=== PATIENT | female | born 1945 | race Caucasian/White ===

== ENCOUNTER → 2020-06-19 | Outpatient (CLI) | payer MEDICARE, BC, SELFPAY ==
[2020-06-19 16:12] LABS: Vitamin D,25 Hydroxy 44.7 ng/mL
[2020-06-19 16:17] LABS: Anion Gap 6 (5-15); BUN 18 mg/dL (7-18); Calcium,Total 9.1 mg/dL (8.5-10.1); Chloride 107 mmol/L (98-107); Creatinine, Serum 0.86 mg/dL (0.55-1.02); EST Glomerular Filtration Rate 69 mL/min (>60); Est Glom Filt Rate - Afr Amer 83 mL/min (>60); Glucose 77 mg/dL (74-106); Sodium Level 141 mmol/L (136-145)
== END | disposition home or self-care (01) ==
LOC: MTLAB 11:15
PROVIDERS: PCP Family Medicine; Referring Provider Family Medicine; Visit Provider Family Medicine
DX: Z00.00 Encounter for general adult medical examination without abnormal findings (principal); E55.9 Vitamin D deficiency, unspecified
CPT/HCPCS: 36415; 80048; 82306

== ENCOUNTER → 2021-07-02 14:30 | Outpatient (CLI) | payer MEDICARE, BC, SELFPAY ==
--- NOTE | 2021-07-02 14:34 | RAD_ITS ---
STUDY: X-RAY - PELVIS AND BILATERAL HIPS REASON FOR EXAM: Female, 76 years old. LEG PAIN TECHNIQUE: AP view of the pelvis.? 2 views of the right hip, and 2 views of the left hip were obtained. COMPARISON: None. FINDINGS: There is a non-specific bowel gas pattern. Normal visualized soft tissue structures. The visualized levoscoliosis multilevel degenerative change in the lumbar spine. Normal bilateral iliac wings, sacroiliac joints and visualized sacrum. Normal bilateral superior and inferior pubic rami. Normal pubic symphysis. Normal bilateral ischial tuberosities. Normal visualized right femoral head. There is osteoarthritic spur formation of the right acetabular rim. There is mild articular joint space narrowing of the right hip. There are osteoarthritic changes of the left femoral head with marginal osteophyte formation. There is cortical sclerosis with sub-cortical cyst formation of the left acetabulum. There is severe articular joint space narrowing of the left hip. RAD/Hips B/L min 2 views w/ Pelvis IMPRESSION: Advanced degenerative change of the left hip joint. Mild degenerative change right hip joint. No visualized acute fracture. Electronically Signed: Alysa Cho MD at 6:56 EDT Tel , Service support ,
== END ==
PROVIDERS: PCP Family Medicine; Referring Provider Family Medicine; Visit Provider Family Medicine
DX: M79.606 Pain in leg, unspecified (principal)
CPT/HCPCS: 73521

== ENCOUNTER → 2022-01-05 | Outpatient (CLI) | payer MEDICARE, BC, SELFPAY ==
--- NOTE | 2022-01-05 14:06 | EKG12_ITS ---
Test Reason : PREOP Blood Pressure : / mmHG Vent. Rate : 064 BPM Atrial Rate : 064 BPM P-R Int : 164 ms QRS Dur : 068 ms QT Int : 408 ms P-R-T Axes : 027 -22 -08 degrees QTc Int : 420 ms Normal sinus rhythm Normal ECG Confirmed by SANJUANITA FLORES, LINDA ([id number]), editorial specialist BECK ANTHONY ([id number]) on 01/06/2022 8:16:34 AM Referred By: Antonio Madsen Confirmed By:LINDA GANN MD
[2022-01-05 14:55] LABS: Hematocrit 39.8 % (37-47); Mean Corp Hgb Conc 32.7 g/dL (32-36); Mean Corpuscular Hgb 30.8 pg (27.0-32.0); Mean Corpuscular Volume 94.3 fL (81-99); Mean Platelet Vol. 9.9 fl (6.2-12.0); Platelet Count 265 K/mm3 (150-450); RBC Distribution Width SD 44.8 fl (35.1-43.9); Red Blood Count 4.22 M/mm3 (4.2-5.4); White Blood Count 6.1 K/mm3 (4.4-11.0)
[2022-01-05 15:16] LABS: Hemoglobin A1c 5.2 % (3.8-5.6)
[2022-01-05 15:21] LABS: Anion Gap 4 (5-15); BUN 17 mg/dL (7-18); BUN/Creat Ratio 19.4 RATIO (10-20); Calcium,Total 9.4 mg/dL (8.5-10.1); Chloride 107 mmol/L (98-107); Creatinine, Serum 0.88 mg/dL (0.55-1.02); EST Glomerular Filtration Rate 67 mL/min (>60); Est Glom Filt Rate - Afr Amer 81 mL/min (>60); Glucose 84 mg/dL (74-106); Potassium 4.2 mmol/L (3.5-5.1); Sodium Level 139 mmol/L (136-145)
== END | disposition home or self-care (01) ==
LOC: PSN 13:59
PROVIDERS: PCP Family Medicine; Referring Provider Physician Assistant; Visit Provider Physician Assistant
DX: Z01.810 Encounter for preprocedural cardiovascular examination (principal); Z01.818 Encounter for other preprocedural examination
CPT/HCPCS: 36415; 80048; 83036; 85027; 93005

== ENCOUNTER → 2022-01-14 | Outpatient (CLI) | payer MEDICARE, BC, SELFPAY ==
--- NOTE | 2022-01-14 08:30 | HIP_PTH ---
PATIENT: NABIL LEIJA LOC: [facility] U#:[id number] AGE/SX: 76/F ROOM: RE01/14/[address]: Dr. Holland Bullock DO : 1945 BED: DIS: 01/14/2022 SPEC #: [id number] RECD: 01/14/22 14:57 STATUS: ALLIE REStarr #: [id number] EVER: 01/14/22 08:[address]: Holland Bullock DEPT: SURGICAL PATHOLOGY RECD BY: Anahi Willis ENTERED: 01/15/22 07:41 SP TYPE: TOTAL HIP OTHR DR: Dr. Duglas Gutierrez MD [facility] Tissues: Hip, NOS Procedures: Decalcification bone/plaque Surgery Specimen Level IV HEADER OPERATION: Left total hip arthroplasty PRE-OP DIAGNOSIS: Primary osteoarthritis left hip TISSUE SUBMITTED: Left hip bone and soft tissue MICROSCOPIC DIAGNOSIS Left hip bone and soft tissue, total hip replacement/resection: Femoral head with degenerative osteoarthritic changes. Fragments of fibroadipose tissue and fibroconnective tissue. SJ:jacey 01/19/2022 MICROSCOPIC DESCRIPTION Slides are reviewed. GROSS DESCRIPTION Received is one container labeled with the patient's name and designated bone and soft tissue hip, left. The specimen consists of a tolbert femoral head measuring 6.5 x 5 x 5 cm. The articular surface of the femoral head displays prominent osteophyte formation, eburnation and bone erosion. Also present in the specimen container are multiple irregular fragments of bone reamings and pink-yellow soft tissue measuring in aggregate 8 x 7 x 1 cm. Welfare [employer] Manager sections are submitted in two cassettes as follows: 1 - soft tissue, 2 - bone after decalcification. / AM:jacey 01/15/2022 TC:5 [facility]: [id number], [id number]
== END | disposition home or self-care (01) ==
PROVIDERS: PCP Family Medicine; Visit Provider Orthopaedic Surgery
DX: M16.12 Unilateral primary osteoarthritis, left hip (principal)
CPT/HCPCS: 88305; 88311

== ENCOUNTER → 2022-09-08 | Outpatient (CLI) | payer MEDICARE, BC, SELFPAY ==
[2022-09-08 13:19] LABS: Anion Gap 5 (5-15); BUN 15 mg/dL (7-18); BUN/Creat Ratio 18.2 RATIO (10-20); Calcium,Total 9.3 mg/dL (8.5-10.1); Chloride 108 mmol/L (98-107); Cholesterol 225 mg/dL (200); Creatinine, Serum 0.82 mg/dL (0.55-1.02); EST Glomerular Filtration Rate 72 mL/min (>60); Est Glom Filt Rate - Afr Amer 87 mL/min (>60); Glucose 85 mg/dL (74-106); High Density Lipoprotein 68 mg/dL; Potassium 4.7 mmol/L (3.5-5.1); Sodium Level 140 mmol/L (136-145); Triglycerides 100 mg/dL; Very Low Density Lipoprotein 20 mg/dL (5-40)
== END | disposition home or self-care (01) ==
LOC: MFPLAB 09:46
PROVIDERS: PCP Family Medicine; Visit Provider Family Medicine
DX: Z00.00 Encounter for general adult medical examination without abnormal findings (principal)
CPT/HCPCS: 36415; 80048; 80061

== ENCOUNTER → 2022-09-17 | Outpatient (CLI) | payer MEDICARE, BC, SELFPAY ==
--- NOTE | 2022-09-17 14:27 | BI_ITS ---
MAMMOGRAPHY - BILATERAL SCREENING REASON FOR EXAM: Female, 77 years old. Routine annual screening examination. PERTINENT HISTORY: Non-contributory. TECHNIQUE: Digital bilateral breast onel (3D mammographic acquisition) in the CC and MLO projections. 2-D mediolateral oblique (MLO) and craniocaudad (CC) views of both breasts were obtained. CAD: Full Field Digital Mammography with Computer Added Detection was performed. COMPARISON: Comparison is made with prior outside examination dated 10/09/2019. FINDINGS: Breast Composition: There are scattered areas of fibroglandular density. There are no dominant masses or suspicious calcifications. Stable small benign-appearing bilateral axillary lymph nodes. No other significant abnormalities are identified. There has been no significant change since the prior study. BI/SCRN MAMM (CAD)W/ONEL BILAT IMPRESSION: Stable bilateral screening mammogram. Yearly follow-up mammogram recommended. (A) ASSESSMENT CATEGORY: BIRADS Category 2: Benign. A letter regarding these results will be sent to the patient by the facility within 30 days. Approximately 10% of breast cancers are not detected by mammography. A normal mammogram should not delay biopsy of a clinically suspicious abnormality. [id number] Electronically Signed: Harvinder Parra MD at 8:29 EST ,
--- NOTE | 2022-09-17 14:28 | BD_ITS ---
STUDY: DUAL ENERGY X-RAY ABSORPTIOMETRY / DXA REASON FOR EXAM: Female, 77 years old. M810 TECHNIQUE: Bone Mineral Density (BMD) measurements of lumbar spine and bilateral hips were obtained. COMPARISON: None. FINDINGS: Lumbar Spine (L1-L4): g/cm2 (1.005) / T-score (-0.4) / Z-score (2.1) Findings are suggestive of normal bone mineral density with a not increased fracture risk. Right Femur Total: g/cm2 (0.64) / T-score -2.4/ Z-score (-0.5) Right Femoral Neck: g/cm2 (0.52) / T-score (-3) / Z-score (-0.8) Left hip not studied due to prosthesis placement No prior study available for comparison BD/Dexa Bone Density Study IMPRESSION: The patient is considered osteoporotic based on the right hip bone mineral density as outlined below according to World Felix Organization (WHO) criteria with a increased fracture risk. Reference Information: The T-score is the number of standard deviations above or below the standard which is normal for young adults at their peak bone mineral density. The World Health Organization (WHO) interprets the T-scores as follows: Above -1 Normal bone density Between -1 and -2.5 Osteopenia Equal to / or below -2.5 Osteoporosis As a practical clinical guideline, osteopenia may be graded as follows: Mild -1 through -1.5 Moderate -1.6 through -2.0 Severe -2.1 through -2.4 The Z-score is the number of standard deviations above or below age-matched controls. A Z-score of less than -1.5 would be considered abnormal. References: 1. NIH Osteoporosis and Related Bone Diseases www osteo.org 2. International Society for Clinical Densitometry www iscd.org 3. National Osteoporosis Foundation www nof.org Electronically Signed: Brad Piedra MD at 23:00 EST ,
== END | disposition home or self-care (01) ==
LOC: OPBD 14:24
PROVIDERS: PCP Family Medicine; Visit Provider Family Medicine
DX: Z00.00 Encounter for general adult medical examination without abnormal findings (principal); Z12.31 Encounter for screening mammogram for malignant neoplasm of breast; M81.0 Age-related osteoporosis without current pathological fracture
CPT/HCPCS: 77063; 77067; 77080

== ENCOUNTER → 2023-03-19 | Outpatient (CLI) | payer MEDICARE, BC, SELFPAY ==
--- NOTE | 2023-03-19 12:48 | RAD_ITS ---
INDICATION: ROUTINE EXAM EXAMINATION/TECHNIQUE: X-RAY - XR Chest 2 Views COMPARISON: FINDINGS: LINES/DEVICES: None. LUNGS: No consolidation, edema or effusion. No pneumothorax. MEDIASTINUM AND CARDIOVASCULAR STRUCTURES: Cardiac silhouette not enlarged. Central airways and mediastinal contour are unremarkable. BONES AND SOFT TISSUES: Unremarkable. RAD/Chest PA and Lateral IMPRESSION: No radiographic evidence of acute cardiopulmonary disease. Electronically Signed: Ezra Liz, at 15:46 EDT ,
[2023-03-19 15:12] LABS: Absolute Lymphocyte Count 1.54 X10^3/uL (0.83-4.51); Absolute Neutrophil Count 2.4 X10^3/uL (2.0-7.7); Basophil# 0.04 X10^3/uL; Basophil% 0.9 % (0-1); Eosinophils% 2.2 % (0-5); Hematocrit 40.6 % (37-47); Hemoglobin 13.2 g/dL (12.0-15.0); Lymphocyte # 1.54 X10^3/ul (0.83-4.51); Lymphocyte % 33.4 % (19-41); Mean Corp Hgb Conc 32.5 g/dL (32-36); Mean Corpuscular Hgb 30.3 pg (27.0-32.0); Mean Corpuscular Volume 93.3 fL (81-99); Mean Platelet Vol. 10.7 fl (6.2-12.0); Monocyte# 0.57 X10^3/uL; Monocyte% 12.4 % (0-10); NRBC Flagged by Analyzer 0 % (0-5); Neutrophil # 2.35 X10^3/uL (2.7-7.7); Neutrophil % 50.9 % (47-70); Platelet Count 250 K/mm3 (150-450); RBC Distribution Width CV 13.2 % (11.6-14.6); RBC Distribution Width SD 45.1 fl (35.1-43.9); Red Blood Count 4.35 M/mm3 (4.2-5.4); White Blood Count 4.6 K/mm3 (4.4-11.0)
[2023-03-19 15:45] LABS: ALB/GLOB Ratio 1.1 RATIO (0.9-2.4); AST(SGOT) 13 U/L (15-37); Alanine Aminotransfer ALT/SGPT 17 U/L (13-56); Albumin, Serum 3.8 g/dL (3.2-5.0); Alkaline Phosphatase 89 U/L (45-117); Anion Gap 5 (5-15); BUN 24 mg/dL (7-18); BUN/Creat Ratio 24.2 RATIO (10-20); Calcium,Total 9.4 mg/dL (8.5-10.1); Chloride 107 mmol/L (98-107); Creatinine, Serum 0.99 mg/dL (0.55-1.02); EST Glomerular Filtration Rate 58 mL/min (>60); Est Glom Filt Rate - Afr Amer 70 mL/min (>60); Globulin 3.4 g/dL (2.2-4.2); Glucose 66 mg/dL (74-106); Potassium 4.1 mmol/L (3.5-5.1); Protein, Total 7.2 g/dL (6.4-8.2); Sodium Level 139 mmol/L (136-145)
== END | disposition home or self-care (01) ==
PROVIDERS: PCP Family Medicine; Referring Provider Family Medicine; Visit Provider Family Medicine
DX: Z00.00 Encounter for general adult medical examination without abnormal findings (principal)
CPT/HCPCS: 36415; 71046; 80053; 85025

== ENCOUNTER 2023-04-16 11:26 | Day surgery (SDC) | payer MEDICARE, BC, SELFPAY ==
[2023-04-16] VITALS (9 sets, daily range): BP systolic 98–123; BP diastolic 72–75; PULSE 50–73; RESP 16; TEMP 36.6–37.1; O2SAT 98–100; BMI 23.6
--- NOTE | 2023-04-16 | BON_PTH ---
PATIENT: NABIL LEIJA LOC: [facility] [place] U#:[id number] AGE/SX: 77/F ROOM: RE04/16/[address]: Dr. Holland Ventura DPM : 1945 BED: DIS: 04/16/2023 SPEC #: [id number] RECD: 04/19/23 10:31 STATUS: ALLIE REStarr #: [id number] EVER: 04/16/23 00:[address]: Holland Ventura DEPT: SURGICAL PATHOLOGY RECD BY: Walt Hale ENTERED: 04/19/23 10:32 SP TYPE: Bone OTHR DR: Dr. Duglas Gutierrez MD Tissues: A - Bone of foot, NOS B - Bone of foot, NOS Procedures: Decalcification bone/plaque Surgery Specimen Level III HEADER OPERATION: Derotational arthroplasty of fifth digit PRE-OP DIAGNOSIS: Christiano Aponte's bunion TISSUE SUBMITTED: A - Fifth digit, B - Fifth metatarsal MICROSCOPIC DIAGNOSIS A. Fifth digit bone, excision: Osseocartilaginous tissue consistent with hammertoe deformity. B. Fifth metatarsal bone, excision: Osseocartilaginous tissue consistent with hammertoe deformity. AM/am 04/21/23 MICROSCOPIC DESCRIPTION Slides are reviewed. GROSS DESCRIPTION A - Received in fixative is one container labeled with the patient's name and designated fifth digit. The specimen consists of three irregular fragments of tolbert-white bone that in aggregate measure 2.0 x 1.2 x 0.2 cm. The specimen is totally submitted in one cassette after decalcification. B - Received in fixative is one container labeled with the patient's name and designated fifth metatarsal. The specimen consists of a discoid fragment of tolbert-white bone measuring 1.2 x 1.0 x 0.2 cm. The specimen is totally submitted in one cassette after decalcification. / AM:jacey 04/19/2023 TC:5 CPT:66815o7, 57633x8
[2023-04-16] MEDS: Lactated Ringers 1,000 ML 15 ML IV (11:57)
--- NOTE | 2023-04-16 12:00 | RAD_ITS ---
EXAM: XR RIGHT FOOT COMPLETE, 3 OR MORE VIEWS CLINICAL INDICATION: PAIN -- DEROTATIONAL ARTHROPLASTY OF 5TH DIGIT -- 20 SEC FLUORO, 0.1128 MGY, 6 IMAGES TECHNIQUE: Frontal, lateral and oblique views of the right foot. COMPARISON: No relevant prior studies available. FINDINGS: BONES/JOINTS: Intraoperative images were obtained. These show surgical resection of the distal aspect of the proximal fifth phalanx. No acute fracture. No subluxation. Normal alignment. Preservation of the joint space. No sclerotic or destructive changes observed. SOFT TISSUES: Unremarkable. No soft tissue swelling or gas. No radiopaque foreign body. RAD/Foot min 3 Views IMPRESSION: Postsurgical changes in the distal aspect of the proximal fifth phalanx. Electronically Signed: Kentrell Ocampo MD at 0:04 EDT ,
[2023-04-16] MEDS: Clindamycin 900 MG/50 ML BAG 75 MG IV (13:29)
[2023-04-16] MEDS: Bupivacaine Mpf 0.5% 30 ML VIAL (14:26)
--- NOTE | 2023-04-16 14:52 | DCINST_ITS ---
Discharge Instructions Diet Discharge Diet: No restrictions Activity Discharge Activity: May Not Drive and May Shower (Please utilize cast bag covering to keep dressings clean, dry, and intact to the right foot) Weight Bearing Status: Partial weight bearing (Protected weightbearing in surgical shoe to right foot. May ambulate as necessary) Keep extremity elevated above heart level: Right Leg (Please elevate right lower extremity at all times rest for postoperative edema control) Dressing / Incision Call your doctor if you observe: Fever of 101 or Higher, Shortness of breath, Chest pain, Calf discomfort and Uncontrolled pain Change Dressing in: do not change dressing Remove Dressing in: leave in place till F/U (Physician will change dressings at first postoperative appointment) Cleanse incision/area with: Do not get Incision Wet (Do not get incision site wet.) and Keep Dressing Clean & Dry (Keep all dressings clean, dry, and intact to the right foot) Follow Up Care Please Follow Up With: Holland Ventura DPM When: Patient has first postoperative appointment in office next week. Test Results: Test results from this visit will be discussed in further detail at your follow- up appointment, if applicable. Discharge Plan Admission Attending Provider: Holland Ventura Primary Care Provider: Duglas Gutierrez Discharge Orders/Prescriptions Prescriptions: New oxycodone-acetaminophen 5-325 mg tablet 1 tab PO Q8H PRN (Reason: pain) 7 Days Qty: 28 0RF doxycycline hyclate 100 mg capsule 100 mg PO DAILY Qty: 10 0RF No Action cholecalciferol (vitamin D3) [Vitamin D3] 50 mcg (2,000 unit) capsule 2,000 unit PO DAILY calcium citrate 250 mg calcium tablet 250 mg PO DAILY Referrals / Follow Up: Duglas Gutierrez MD [Primary Care Provider] - Disposition Disposition (needs filled in before D/C Order can be placed): Home, Self Care
--- NOTE | 2023-04-16 14:59 | OP.PCM_ITS ---
Problems Associated Problem List Diagnoses (1) Tailor's bunion of right foot: (2) Hammer toe of right foot: (3) Pain in right foot: Report of Operation Date of Procedure: 04/16/23 Pre-Operative Diagnosis: 1. Adductovarus rotation fifth digit right foot 2. Tailor's bunion right foot 3. Pain right foot Post-Operative Diagnosis: 1. Adductovarus rotation fifth digit right foot 2. Tailor's bunion right foot 3. Pain right foot Surgery/Procedure Performed:: 1. Derotational arthroplasty of the fifth digit right foot 2. Tailor's bunionectomy/reverse silver procedure right foot Description of Surgical Findings:: See operative note for findings Surgeon: Holland Ventura test engine evaluator: Jo-Ann Castillo DPM PGY-2 Type of Anesthesia: Local (10 cc one-to-one mixture 1% lidocaine plain and 0.5% Marcaine plain; 10 cc 0.5% Marcaine plain) and MAC Specimen's removed: Bone fifth metatarsal right foot Bone fifth digit right foot Drains: None Estimated Blood Loss (mL): < 3mL Description of Procedure: HPI/indication: Patient is a 77-year-old female who presents to the office September 02, 2022 with complaint of pain in the fifth digit and right foot. Patient stated her pain is primarily from hammertoe deformity with callus buildup to the plantar lateral fifth digit and from bump on the side of the foot that rubs in shoe gear. Radiographs were taken and discussed with her. Patient did exhibit adductovarus rotation of the fifth digit with painful plantar callus at the distal lateral aspect in addition to painful tailor's bunion deformity of the right foot. At that time patient elected for routine debridement of the callus and change of shoe gear however over the next few months she stated that she was still having pain and was ready to discuss surgical intervention. I discussed with her in March surgical intervention for correction of the adductovarus deformity of the fifth digit in addition to tailor's bunion deformity. I reviewed the condition and treatment options in detail. Patient continues to have limiting pain and significant symptoms despite nonsurgical care and thus would like to proceed with surgical intervention. We discussed the procedure in great detail. Reviewed the rationale with the procedure with this patient in great detail. We discussed all possible benefits versus risks and potential complications in detail. Advised patient of the risks include but are not limited to the following: Pain, continued pain, complex regional pain syndrome, deformity, continue deformity, recurrence, overcorrection, under correction, numbness/neuritis, swelling, scarring, poor cosmetic result, bleeding, need for further surgical surgery/procedures, fracture, nonunion, delayed union, nonhealing/delayed healing, dehiscence, infection, blood clots, allergic reaction, transfer lesions, postoperative arthritis, weakness, shoe gear problems, inability to walk, inability to wear shoes, floating toe, contracted toe, deviated toe, stroke, heart attack, addiction to pain medication, loss of function, loss of limb, loss of life. Patient expressed understanding and agreement and was able to repeat these back. The alternative options were discussed and reviewed with the patient in great detail, reviewed all risks and possible benefits of all options. Typical postoperative course was reviewed. Patient expressed understanding and agreement. The consent forms were reviewed and she signed them freely. No promises were made. No guarantees were given. She underwent medical clearance by her PCP and H&P and all diagnostic data were reviewed prior to surgical intervention. Operative limb was signed prior to entering the OR. She was scheduled to undergo derotational arthroplasty of the fifth digit and tailor's bunionectomy of the right foot at [facility] on 04/16/2023. Procedure: Under mild sedation patient was brought to the operating placed on the table in supine position. Following IV sedation pneumatic ankle tourniquet was placed around the patient's right ankle. A local anesthetic block was then performed about the proximal fifth ray of the right foot consisting of 10 cc of a one-to-one mixture of 1% lidocaine plain and 0.5% Marcaine plain. The foot was then scrubbed, prepped, and draped in the usual aseptic manner. An Esmarch bandage was utilized to exsanguinate the right foot and the right foot was elevated and the pneumatic ankle tourniquet was inflated to 250 mmHg. Fluoroscopy was utilized prior to incision to demonstrate hammertoe deformity of the fifth digit and tailor's bunion deformity of the right foot. At this time attention was directed to the right foot fifth digit where an elliptical incision was performed overlying the fifth proximal interphalangeal joint dorsal proximal lateral and extended dorsal distal medial utilizing a #15 blade. The skin wedge was then removed utilizing sharp dissection with #15 blade. Incision was deepened utilizing sharp and blunt dissection, care was taken to identify and retract all vital neurovascular structures. Extensor tendon to the fifth digit was identified and transected at the proximal interphalangeal joint utilizing #15 blade. At this time visualization of the proximal interphalangeal joint was obtained and the head of the proximal phalanx was resected utilizing a sagittal saw. Base of the middle phalanx was also resected utilizing sagittal saw. Site was then irrigated with copious amounts normal sterile saline. Next attention was directed to the fifth metatarsal where a separate linear incision was made overlying the lateral aspect of the fifth metatarsal head. Incision was deepened utilizing sharp and blunt dissection. Care was taken to identify and retract all vital neurovascular structures. The joint capsule of the fifth metatarsal was identified and incised via a linear incision to give access to the tailor's bunion deformity. A sagittal saw was then utilized to resect the lateral aspect of the fifth metatarsal head/lateral eminence. Fluoroscopy was then utilized to confirm resection and correction of the hammertoe deformity. Site was then flushed with copious amounts of normal sterile saline. Capsular tissue and deep structures about the fifth metatarsal head were closed utilizing 4-0 Vicryl. Subcutaneous tissue closed utilizing 4-0 Monocryl. And skin reapproximated utilizing 3-0 Prolene. Attention was then directed to the fifth digit of the right foot where capsular tissue was closed utilizing 4-0 Vicryl. The extensor tendon of the fifth digit was repaired utilizing 4-0 Vicryl. Subcutaneous tissue was then closed utilizing 4-0 Monocryl. The skin was then reapproximated utilizing 3-0 Prolene. Upon loading of the foot correction was noted of the tailor's bunion deformity and fifth digit of the right foot. A postoperative anesthetic block was then performed about the proximal fifth ray consisting of 10 cc 0.5% Marcaine plain. At this time the pneumatic ankle tourniquet was deflated and a prompt hyperemic response was noted to the digits of the right foot. Incision sites were then dressed utilizing Betadine soaked Adaptic, 4 x 4 gauze, Kerlix, and 4 inch Shay wrap rolled onto the right foot. Patient tolerated the procedure and anesthesia well was transported to PACU vital signs stable vascular status intact to the right foot. Postoperative radiographs were obtained of the right foot in PACU and reviewed prior to leaving. Patient is to elevate right foot at all times of rest for postoperative edema control. She is to keep dressings clean, dry, and intact to the right foot. She may ambulate in protective weightbearing fashion with surgical shoe to the right foot only. These were outlined in addition to other postoperative instructions in her discharge summary. Patient has first postoperative appointment with me in office next week for continued postoperative care. Grafts/Implants Used: None Complications None Admit VTE Documentation VTE Present on Admission: No VTE Mechan Device Prophylaxis: SCD's VTE Pharm Prophylaxis ordered?: No Reason prophylaxis not ordered:: Procedure Not Indicated
--- NOTE | 2023-04-16 15:05 | RAD_ITS ---
EXAM: XR RIGHT FOOT COMPLETE, 3 OR MORE VIEWS CLINICAL INDICATION: Postoperative tailor''s bunion and fifth digit jared TECHNIQUE: Frontal, lateral and oblique views of the right foot. COMPARISON: No relevant prior studies available. FINDINGS: BONES/JOINTS: There are postsurgical changes of the distal aspect of the proximal fifth phalanx. No acute fracture. No subluxation. Normal alignment. Preservation of the joint space. No sclerotic or destructive changes observed. SOFT TISSUES: Unremarkable. No soft tissue swelling or gas. No radiopaque foreign body. RAD/Foot min 3 Views IMPRESSION: Postsurgical changes of the distal aspect of the proximal fifth phalanx. Electronically Signed: Kentrell Ocampo MD at 19:39 EDT ,
== END 2023-04-16 16:26 | disposition home or self-care (01) ==
LOC: SDC 11:29 → AC 11:31
PROVIDERS: PCP Family Medicine; Referring Provider Student in an Organized Health Care Education/Training Program; Visit Provider Student in an Organized Health Care Education/Training Program
PROC: (CPT 28285; principal; 2023-04-16 12:45)
DX: M20.41 Other hammer toe(s) (acquired), right foot (principal); M21.611 Bunion of right foot
CPT/HCPCS: 28285; 28110; 01480; 73630; 76000; 88304; 88311; J7120; J2405

== ENCOUNTER 2023-12-15 13:00 | Outpatient (RCR) | payer MEDICARE, BC, SELFPAY ==
--- NOTE | 2023-12-02 07:38 | HP.OTEVAL_ITS ---
Patient's Visit Information Visit Information Visit Information: NABIL LEIJA is a 78 year old F, referred to Occupational Therapy by Dr. Alyx Agudelo MD, with a diagnosis of Dupuytren's disease of palm of right hand. Date of Evaluation: 12/01/23 Occupational Therapist: Karoline Gaspar, DIONICIO/Kristina, CHT Subjective Subjective: This 78 year old female was seen for OT eval with dx of right Dupuytren's disease of palm of right hand- pt states she has issues for over three years- pt states she has had manipulation and the contracture continued to return- pt states she had left hand open release done and so she decided to go ahead with her right. pt had open release November 09, 2023 pt states she did get stitches out 10 days after and had her night orthosis damian. pt states paddle orthosis is fitting well and lets her sleep- pt states she can feel her hand pulling closed during the day so she will put her orthosis on about 2x a day to allow it to rest/stretch. pt states she has returned to using her hand but incision is still sore. pt is right handed. Pain right hand: Current Pain Intensity: 1 Pain Intensity Range: 1 and 2 ROM Forearm: right/left WNL Wrist: right/left WNL MP: right MF -20/80 RF-25/85 LF -5/85 PIP: right LF -35/95 ROM Comments: pt demo with continued slight MCP flex LF PIP limited with ex but moving all digits into flexion to form composite fist without difficulty. 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 (pt denies concerns) PROM of right LF PIP extension does feel tight ( will adj orthosis as pt tolerates ) Sensation Sensation Comments: denies Quick DASH-Disab of Arm,Shoulder& Hand Quick DASH Score: 31.8175 Goals Goal:100% adherence to protocol: Yes Comment: Dupuytren's release Guidlelines Goal:Daily scar massage when approriate: Yes Comment: right palm scar Goal:ROM equal to unaffected hand: Yes Goal:No pain with affected hand use: Yes Goal:Full use of affected hand in daily activities including work: Yes Goal:Decrease scar hypersensitivity: Yes Rehabilitation General Assessment: Pt s/p 3 weeks and 1 days s/p from a right SF and Palm, Dupuytren's excision. Pt demo with healed incision with noted hyper trophic and keloid scar- and limited PIP extension of right LF PIPJ. Pt demo need for skilled OT services 1x week for 3-4 weeks to ensure gains of ROM, scar mtg, along with return to use of right hand with ADLs and IADS. Today therapist did ed. pt in use of elastomer for night with paddle orthosis to provide scar support, ed. pt on light scar massage, review of her tendon glides added reverse blocking for PIP extension therapist also review orthosis use with strap placements- pt demo understanding and agree to POC. Rehabilitation Potential: Excellent Anticipated Interventions Anticipated Interventions: A/AAROM/PROM, Scar Care, Triggerpoint Release, Desensitization, Modalities, Orthoses, Joint Protection/Energy Conservation, Ergonomic Education, Education re Diagnosis and Home Program Visit Plan Frequency: 1-2x /Week Duration: 2-4 Weeks TEXT: Thank you for the opportunity to evaluate your patient. For Medicare and Medicare HMO plans, please review the plan of care and approve it. It will need to be FAXED BACK to us at [phone] for Medicare purposes. Please let me know if there are questions or concerns regarding this plan of care. Physician Signature: Dat e:
--- NOTE | 2024-03-24 09:06 | HP.OT.NRP ---
Patient Information Patient Information: NABIL LEIJA was seen in my office for initial evaluation on 12/01/23. The following Plan of Care was established for this patient: POC Established Initial Frequency: 1-2x /Week Initial Duration: 2-4 Weeks Anticipated Interventions Anticipated Interventions: A/AAROM/PROM, Scar Care, Triggerpoint Release, Desensitization, Modalities, Orthoses, Joint Protection/Energy Conservation, Ergonomic Education, Education re Diagnosis and Home Program Last Seen Last Seen: This patient was last seen in our office 12/15/23. Pertinent comments regarding their Occupational therapy will appear below: pt was seen for 3 OT sessions. pt doing well- Pt has not scheduled further apts and due to time lapse in services pt is d/c at this time. At this point I will be discontinuing this patient from occupational therapy. I would be happy to see this patient again in the future if found appropriate by the physician. Thank you! Karoline Gaspar, OTR/L, CHT
== END 2023-12-15 19:00 | disposition home or self-care (01) ==
LOC: OT 13:00
PROVIDERS: PCP Family Medicine; Referring Provider Orthopaedic Surgery Hand Surgery; Visit Provider Orthopaedic Surgery Hand Surgery
DX: M72.0 Palmar fascial fibromatosis [Dupuytren] (principal)
CPT/HCPCS: 97035; 97110; 97140; 97166; 97530

== ENCOUNTER → 2024-06-20 | Outpatient (CLI) | payer MEDICARE, BC, SELFPAY ==
[2024-06-20 12:32] LABS: Vitamin D,25 Hydroxy 55.1 ng/mL
[2024-06-20 12:40] LABS: Anion Gap 4 (5-15); BUN 20 mg/dL (7-18); Calcium,Total 9.4 mg/dL (8.5-10.1); Chloride 110 mmol/L (98-107); Creatinine, Serum 0.95 mg/dL (0.55-1.02); EST Glomerular Filtration Rate 60 mL/min (>60); Est Glom Filt Rate - Afr Amer 73 mL/min (>60); Glucose 87 mg/dL (74-106); Potassium 4.1 mmol/L (3.5-5.1); Sodium Level 141 mmol/L (136-145)
== END | disposition home or self-care (01) ==
LOC: MTLAB 09:40
PROVIDERS: PCP Family Medicine; Referring Provider Family Medicine; Visit Provider Family Medicine
DX: Z00.00 Encounter for general adult medical examination without abnormal findings (principal); E55.9 Vitamin D deficiency, unspecified
CPT/HCPCS: 36415; 80048; 82306

== ENCOUNTER → 2025-06-21 | Outpatient (CLI) | payer MEDICARE, BC, SELFPAY ==
--- OUTSIDE RECORDS SUMMARY | 2025-06-21 10:35 | XMS RPT_ITS | CCD ---
Author Organization [facility] Inform ion Partnership [facility] Care Team Providers Care Security Associate Name Role Phone Alyx Agudelo MD Unavailable [phone] Duglas Gutierrez Primary Care Unavailable Alyx Agudelo Attending Unavailable Alyx Agudelo Referring Unavailable Duglas Gutierrez Attending Unavailable Duglas Gutierrez Referring Unavailable Duglas Gutierrez Primary Care Unavailable Allergies Allergy Classification Reported Allergen(s) Allergy Type Date of Onset Reaction(s) Facility (1 source) Alendronate Drug Allergy 9 "pain in legs" [facility] Work Phone: (1 source) Amoxicillin Drug Allergy 9 "hives" 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, [address] CA,Total 9.4 mg/dL Normal 8.5-10.1 [facility] Comment on above: Performed By: #### L 506.1000, L500.2500 #### [facility] [address] [place], [address] Chloride [Moles/Vol] 110 mmol/L High 98-107 [facility] Comment on above: Performed By: #### L 506.1000, L500.2500 #### [facility] [address] [place], [address] CO2 [Moles/Vol] 28.0 mmol/L Normal 21.0-32.0 [facility] Comment on above: Performed By: #### L 506.1000, L500.2500 #### [facility] [address] [place], [address] Creatinine [Mass/Vol] 0.95 mg/dL Normal 0.55-1.02 [facility] Comment on above: Result Comment: The validity of the calculated GFR GFRAA in patients over 70 years has not been determined. Clinical correlation is essential. Performed By: #### L 506.1000, L500.2500 #### [facility] [address] [place], [address] EST GFR - AA 73 mL/min Normal >60 [facility] Comment on above: Result Comment: Afri can Brazilian GFR Calc Performed By: #### L 506.1000, L500.2500 #### [facility] [address] [place], [address] GAP 4 Low 5-15 [facility] Comment on above: Performed By: #### L 506.1000, L500.2500 #### [facility] [address] [place], [address] GFR/1.73 sq M.predicted among non-blacks MDRD (S/P/Bld) [Vol rate/Area] 60 mL/min/{1.73_m2} Normal >60 [facility] Comment on above: Result Comment: Non- GFR Calc Performed By: #### L 506.1000, L500.2500 #### [facility] [address] [place], [address] Glucose [Mass/Vol] 87 mg/dL Normal 74-106 [facility] Comment on above: Performed By: #### L 506.1000, L500.2500 #### [facility] [address] [place], [address] Potassium [Moles/Vol] 4.1 mmol/L Normal 3.5-5.1 [facility] Comment on above: Performed By: #### L 506.1000, L500.2500 #### [facility] [address] [place], [address] Sodium [Moles/Vol] 141 mmol/L Normal 136-145 [facility] Comment on above: Performed By: #### L 506.1000, L500.2500 #### [facility] [address] [place], [address] Urea nitrogen [Mass/Vol] 20 mg/dL High 7-18 [facility] Comment on above: Performed By: #### L 506.1000, L500.2500 #### [facility] [address] [place], [address] Vitamin D,25 Hydroxyon 06-20 Vitamin D 25-OH 55.1 ng/mL Normal [facility] Comment on above: Result Comment: Kely min D 25(OH) Status Range Deficiency <20 ng/mL (50nmol/L) Insufficiency 20 - 30 ng/mL (50 - 75 nmol/L) Sufficiency 30 - 100 ng/mL (75 - 250 nmol/L) Toxicity >100 ng/mL (>250 nmol/L) Performed By: #### L 506.1000, L500.2500 #### [facility] [address] [place], [address] OT D/C of Non Returning Pton 03-24-2024 OT D/C of Non Returning Pt [facility] Occupational Therapy [facility] [address] [place] [address] / REHABILITATION SERVICES DISCHARGE SUMMARY MR#: [id number] Acct: [id number] Name: NABIL LEIJA Rep #: [id number] : 1945 78 From: Karoline Gaspar OTR/L, T Referring Dr.: Dr. Alyx Agudelo MD Status: REG RCR Eval Date: Discharge Date: Patient Information Patient Information: NABIL LEIJA was seen in my office for initial evaluation on 12/01/23. The following Plan of Care was established for this patient: POC Established Initial Frequency: 1-2x /Week Initial Duration: 2-4 Weeks Anticipated Interventions Anticipated Interventions: A/AAROM/PROM, Scar Care, Triggerpoint Release, Desensitization, Modalities, Orthoses, Joint Protection/Energy Conservation, Ergonomic Education, Education re Diagnosis and Home Program Last Seen Last Seen: This patient was last seen in our office 12/15/23. Pertinent comments regarding their Occupational therapy will appear below: pt was seen for 3 OT sessions. pt doing well- Pt has not scheduled further apts and due to time lapse in services pt is d/c at this time. At this point I will be discontinuing this patient from occupational therapy. I would be happy to see this patient again in the future if found appropriate by the physician. Thank you! Karoline Gaspar OTR/L, T 03/24/24 0906 CC: Dr. Alyx Agudelo MD; Dr. Duglas Gutierrez MD MK Signed Normal [facility] OT General Evaluationon OT General Evaluation [facility] Occupational Therapy [facility] [address] [place] [address] / REHABILITATION SERVICES INITIAL EVALUATION MR#: [id number] Acct: [id number] Name: NABIL LEIJA Rep #: [id number] : 1945 78 From: Karoline GREENBERG/Kristina, AZULT Referring Dr.: Dr. Alyx Agudelo MD Status: REG RCR Insurance: MEDICARE PART A B Eval Date: ANTHEM Patient's Visit Information Visit Information Visit Information: NABIL LEIJA is a 78 year old F, referred to Occupational Therapy by Dr. Alyx Agudelo MD, with a diagnosis of Dupuytren's disease of palm of right hand. Date of Evaluation: 12/01/23 Occupational Therapist: Karoline Gaspar, DIONICIO/Kristina, CHT Subjective Subjective: This 78 year old female was seen for OT eval with dx of right Dupuytren's disease of palm of right hand- pt states she has issues for over three years- pt states she has had manipulation and the contracture continued to return- pt states she had left hand open release done and so she decided to go ahead with her right. pt had open release November 09, 2023 pt states she did get stitches out 10 days after and had her night orthosis damian. pt states paddle orthosis is fitting well and lets her sleep- pt states she can feel her hand pulling closed during the day so she will put her orthosis on about 2x a day to allow it to rest/stretch. pt states she has returned to using her hand but incision is still sore. pt is right handed. Pain right hand: Current Pain Intensity: 1 Pain Intensity Range: 1 and 2 ROM Forearm: right/left WNL Wrist: right/left WNL MP: right MF -20/80 RF-25/85 LF -5/85 PIP: right LF -35/95 ROM Comments: pt demo with continued slight MCP flex LF PIP limited with ex but moving all digits into flexion to form composite fist without difficulty. 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 (pt denies concerns) PROM of right LF PIP extension does feel tight ( will adj orthosis as pt tolerates ) Sensation Sensation Comments: denies Quick DASH-Disab of Arm,Shoulder Hand Quick DASH Score: 31.8175 Goals Goal:100% adherence to protocol: Yes Comment: Dupuytren's release Guidlelines Goal:Daily scar massage when approriate: Yes Comment: right palm scar Goal:ROM equal to unaffected hand: Yes Goal:No pain with affected hand use: Yes Goal:Full use of affected hand in daily activities including work: Yes Goal:Decrease scar hypersensitivity: Yes Rehabilitation General Assessment: Pt s/p 3 weeks and 1 days s/p from a right SF and Palm, Dupuytren's excision. Pt demo with healed incision with noted hyper trophic and keloid scar- and limited PIP extension of right LF PIPJ. Pt demo need for skilled OT services 1x week for 3-4 weeks to ensure gains of ROM, scar mtg, along with return to use of right hand with ADLs and IADS. Today therapist did ed. pt in use of elastomer for night with paddle orthosis to provide scar support, ed. pt on light scar massage, review of her tendon glides added reverse blocking for PIP extension therapist also review orthosis use with strap placements- pt demo understanding and agree to POC. Rehabilitation Potential: Excellent Anticipated Interventions Anticipated Interventions: A/AAROM/PROM, Scar Care, Triggerpoint Release, Desensitization, Modalities, Orthoses, Joint Protection/Energy Conservation, Ergonomic Education, Education re Diagnosis and Home Program Visit Plan Frequency: 1-2x /Week Duration: 2-4 Weeks TEXT: Thank you for the opportunity to evaluate your patient. For Medicare and Medicare HMO plans, please review the plan of care and approve it. It will need to be FAXED BACK to us at [phone] for Medicare purposes. Please let me know if there are questions or concerns regarding this plan of care. Physician Signature: Date: ____ 12/02/23 0738 CC: Dr. Alyx Agudelo MD; Dr. Duglas Gutierrez MD MK Signed For Medicare only, by signing this I certify the plan of care. __ Physicians Signature Date Normal [facility] Absolute lymphocyte countOrd ered By: Duglas Gutierrez on 03-19-2023 Lymphocytes Auto (Unsp spec) [#/Vol] 1.54 10*3/uL 0.83-4.51 [facility] Basophil percentageOrdered B y: Duglas Gutierrez on 03-19-2023 Basophils/100 WBC (Bld) 0.9 % 0-1 [facility] Bilirubin [Mass/Vol] 0.50 mg/dL 0.20-1.00 [facility] Comment on above: For patients on eltr ombopag therapy, use of Dimension Inchelium TBIL is not recommended. Chloride [Moles/Vol] 107 mmol/L 98-107 [facility] Eosinophils/100 WBC (Bld) 2.2 % 0-5 [facility] Glucose [Mass/Vol] 66 mg/dL 74-106 [facility] Neutrophils (Bld) [#/Vol] 2.4 10*3/uL 2.0-7.7 [facility] Neutrophils/100 WBC (Bld) 50.9 % 47-70 [facility] Potassium [Moles/Vol] 4.1 mmol/L 3.5-5.1 [facility] Protein [Mass/Vol] 7.2 g/dL 6.4-8.2 [facility] Sodium [Moles/Vol] 139 mmol/L 136-145 [facility] WBC (Bld) [#/Vol] 4.6 10*3/uL 4.4-11.0 [facility] Blood erythrocytes count (nu mber/volume)Ordered By: Duglas Gutierrez on 03-19-2023 RBC (Bld) [#/Vol] 4.35 10*6/uL 4.2-5.4 [facility] Blood hemoglobin measurement (mass/volume)Ordered By: Duglas Gutierrez on 03-19-2023 Hemoglobin (Bld) [Mass/Vol] 13.2 g/dL 12.0-15.0 [facility] Blood lymphocytes/100 leukoc ytesOrdered By: Duglas Gutierrez on 03-19-2023 Lymphocytes/100 WBC (Bld) 33.4 % 19-41 [facility] Blood monocytes/100 leukocyt esOrdered By: Duglas Gutierrez on 03-19-2023 Monocytes/100 WBC (Bld) 12.4 % 0-10 [facility] Blood platelet mean volumeOr dered By: Duglas Gutierrez on 03-19-2023 Platelet mean volume (Bld) [Entitic vol] 10.7 fL 6.2-12.0 [facility] Determination of erythrocyte mean corpuscular volume (MCV)Ordered By: Duglas Gutierrez on 03-19-2023 MCV (RBC) [Entitic vol] 93.3 fL 81-99 [facility] Hematocrit Auto (Bld) [Volum e fraction]Ordered By: Duglas Gutierrez on 03-19-2023 Hematocrit (Bld) [Volume fraction] 40.6 % 37-47 [facility] - Chemistry and C hemistry - challengeOrdered By: Duglas Gutierrez on 03-19-2023 ALP [Catalytic activity/Vol] 89 U/L 45-117 [facility] ALT [Catalytic activity/Vol] 17 U/L 13-56 [facility] CO2 [Moles/Vol] 27.0 mmol/L 21.0-32.0 [facility] Globulin (S) [Mass/Vol] 3.4 g/dL 2.2-4.2 [facility] Urea nitrogen/Creatinine [Mass ratio] 24.2 mg/mg 10-20 [facility] - Hematology and Cell countsOrdered By: Duglas Gutierrez on 03-19-2023 Erythrocyte distribution width (RBC) [Entitic vol] 45.1 fL 35.1-43.9 [facility] Erythrocyte distribution width (RBC) [Ratio] 13.2 % 11.6-14.6 [facility] Immature granulocytes/100 WBC (Bld) 0.200 % 0.0-0.9 [facility] Comment on above: IG% - Immature Granu locytes (promyelocytes, myelocytes and metamyelocytes) > 1% indicates that a LEFT SHIFT is Present. MCH (RBC) [Entitic mass] 30.3 pg 27.0-32.0 [facility] Nucleated RBC/100 WBC (Bld) [Ratio] 0 % 0-5 [facility] MCHC Auto (RBC) [Mass/Vol]Or dered By: Duglas Gutierrez on 03-19-2023 MCHC (RBC) [Mass/Vol] 32.5 g/dL 32-36 [facility] No Panel InformationOrdered By: Duglas Gutierrez on 03-19-2023 Estimated GFR (MDRD) Amer 70 mL/min >60 [facility] Comment on above: GFR Calc Estimated GFR (MDRD) Non-Af Amer 58 mL/min >60 [facility] Comment on above: Non- GFR Calc Platelets bldOrdered By: Emma Gutierrez on 03-19-2023 Platelets (Bld) [#/Vol] 250 10*3/uL 150-450 [facility] Serum or plasma albumin luis e urement (mass/volume)Ordered By: Duglas Gutierrez on 03-19-2023 Albumin [Mass/Vol] 3.8 g/dL 3.2-5.0 [facility] Serum or plasma albumin/glob ulin mass ratioOrdered By: Duglas Gutierrez on 03-19-2023 Albumin/Globulin [Mass ratio] 1.1 {ratio} 0.9-2.4 [facility] Serum or plasma calcium luis e urement (mass/volume)Ordered By: Duglas Gutierrez on 03-19-2023 Calcium [Mass/Vol] 9.4 mg/dL 8.5-10.1 [facility] Serum or plasma creatinine m easurement (mass/volume)Ordered By: Duglas Gutierrez on 03-19-2023 Creatinine [Mass/Vol] 0.99 mg/dL 0.55-1.02 [facility] Comment on above: The validity of the calculated GFR & GFRAA in patients over 70 years has not been determined. Clinical correlation is essential. Serum or plasma urea nitroge n measurement (mass/volume)Ordered By: Duglas Gutierrez on 03-19-2023 Urea nitrogen [Mass/Vol] 24 mg/dL 7-18 [facility] Thin prep Papanicolaou smear with manual screeningOrdered By: Duglas Gutierrez on 03-19-2023 Thin prep Papanicolaou smear with manual screening 13 U/L 15-37 [facility] Thin prep Papanicolaou smear with manual screening 5 5-15 [facility] Basophil percentageOrdered B y: Dr. Gutierrez on 09-08-2022 Chloride [Moles/Vol] 108 mmol/L 98-107 [facility] Cholesterol [Mass/Vol] 225 mg/dL <200 [facility] Comment on above: <200 mg/dL Desirable 200-240 mg/dL Borderline >240 mg/dL High Risk Glucose [Mass/Vol] 85 mg/dL 74-106 [facility] Potassium [Moles/Vol] 4.7 mmol/L 3.5-5.1 [facility] Sodium [Moles/Vol] 140 mmol/L 136-145 [facility] Triglyceride [Mass/Vol] 100 mg/dL <199 [facility] Comment on above: The drugs N-Acetylcy steine and Metamizole may falsely depress this assay.Serum Triglycerides Reference Interval Normal <150 mg/dL Borderline high 150 - 199 mg/dL High 200 - 499 mg/dL Very High > or = 500 mg/dL Laboratory - Chemistry and C hemistry - challengeOrdered By: Dr. Gutierrez on 09-08-2022 CO2 [Moles/Vol] 27.0 mmol/L 21.0-32.0 [facility] Urea nitrogen/Creatinine [Mass ratio] 18.2 mg/mg 10-20 [facility] No Panel InformationOrdered By: Dr. Gutierrez on 09-08-2022 Estimated GFR (MDRD) Amer 87 mL/min >60 [facility] Comment on above: GFR Calc Estimated GFR (MDRD) Non-Af Amer 72 mL/min >60 [facility] Comment on above: Non- GFR Calc Serum or plasma calcium luis e urement (mass/volume)Ordered By: Dr. Gutierrez on 09-08-2022 Calcium [Mass/Vol] 9.3 mg/dL 8.5-10.1 [facility] Serum or plasma cholesterol in HDL measurement (mass/volume)Ordered By: Dr. Gutierrez on 09-08-2022 Cholesterol in HDL [Mass/Vol] 68 mg/dL >40 [facility] Comment on above: The drugs N-Acetylcy steine and Metamizole may falsely depress this assay. Reference Range HDL <40 mg/dL Low HDL Cholesterol HDL >or= 60 mg/dL High HDL Cholesterol Serum or plasma cholesterol in VLDL measurement (mass/volume)Ordered By: Dr. Gutierrez on 09-08-2022 Cholesterol in VLDL [Mass/Vol] 20 mg/dL 5-40 [facility] Serum or plasma creatinine m easurement (mass/volume)Ordered By: Dr. Gutierrez on 09-08-2022 Creatinine [Mass/Vol] 0.82 mg/dL 0.55-1.02 [facility] Comment on above: The validity of the calculated GFR & GFRAA in patients over 70 years has not been determined. Clinical correlation is essential. Serum or plasma low density lipoprotein (LDL) cholesterol measurement (mass/volume)Ordered By: Dr. Gutierrez on 09-08-2022 Cholesterol in LDL [Mass/Vol] 137 mg/dL 0-130 [facility] Serum or plasma urea nitroge n measurement (mass/volume)Ordered By: Dr. Gutierrez on 09-08-2022 Urea nitrogen [Mass/Vol] 15 mg/dL 7-18 [facility] Thin prep Papanicolaou smear with manual screeningOrdered By: Dr. Gutierrez on 09-08-2022 Thin prep Papanicolaou smear with manual screening 5 5-15 [facility] Basophil percentageon 2021 Chloride [Moles/Vol] 107 mmol/L 98-107 [facility] Work Phone: Glucose [Mass/Vol] 84 mg/dL 74-106 [facility] Work Phone: Potassium [Moles/Vol] 4.2 mmol/L 3.5-5.1 [facility] Work Phone: Sodium [Moles/Vol] 139 mmol/L 136-145 [facility] Work Phone: WBC (Bld) [#/Vol] 6.1 10*3/uL 4.4-11.0 [facility] Work Phone: Blood erythrocytes count (nu mber/volume)on 01-05-2022 RBC (Bld) [#/Vol] 4.22 10*6/uL 4.2-5.4 [facility] Work Phone: Blood hemoglobin measurement (mass/volume)on 01-05-2022 Hemoglobin (Bld) [Mass/Vol] 13.0 g/dL 12.0-15.0 [facility] Work Phone: Blood platelet mean volumeon 01-05-2022 Platelet mean volume (Bld) [Entitic vol] 9.9 fL 6.2-12.0 [facility] Work Phone: Determination of erythrocyte mean corpuscular volume (MCV)on 01-05-2022 MCV (RBC) [Entitic vol] 94.3 fL 81-99 [facility] Work Phone: Hematocrit Auto (Bld) [Volum e fraction]on 01-05-2022 Hematocrit (Bld) [Volume fraction] 39.8 % 37-47 [facility] Work Phone: Laboratory - Chemistry and C hemistry - challengeon 01-05-2022 CO2 [Moles/Vol] 28.0 mmol/L 21.0-32.0 [facility] Work Phone: Urea nitrogen/Creatinine [Mass ratio] 19.4 mg/mg 10-20 [facility] Work Phone: Laboratory - Hematology and Cell countson 01-05-2022 Erythrocyte distribution width (RBC) [Entitic vol] 44.8 fL 35.1-43.9 [facility] Work Phone: Erythrocyte distribution width (RBC) [Ratio] 13.0 % 11.6-14.6 [facility] Work Phone: MCH (RBC) [Entitic mass] 30.8 pg 27.0-32.0 [facility] Work Phone: MCHC Auto (RBC) [Mass/Vol]on 01-05-2022 MCHC (RBC) [Mass/Vol] 32.7 g/dL 32-36 [facility] Work Phone: No Panel Informationon 01-05 Estimated GFR (MDRD) Amer 81 mL/min >60 [facility] Work Phone: Comment on above: GFR Calc Estimated GFR (MDRD) Non-Af Amer 67 mL/min >60 [facility] Work Phone: Comment on above: Non- GFR Calc Platelets bldon 01-05-2022 Platelets (Bld) [#/Vol] 265 10*3/uL 150-450 [facility] Work Phone: Serum or plasma calcium luis e urement (mass/volume)on 01-05-2022 Calcium [Mass/Vol] 9.4 mg/dL 8.5-10.1 [facility] Work Phone: Serum or plasma creatinine m easurement (mass/volume)on 01-05-2022 Creatinine [Mass/Vol] 0.88 mg/dL 0.55-1.02 [facility] Work Phone: Comment on above: The validity of the calculated GFR & GFRAA in patients over 70 years has not been determined. Clinical correlation is essential. Serum or plasma urea nitroge n measurement (mass/volume)on 01-05-2022 Urea nitrogen [Mass/Vol] 17 mg/dL 7-18 [facility] Work Phone: Thin prep Papanicolaou smear with manual screeningon 01-05-2022 Thin prep Papanicolaou smear with manual screening 4 5-15 [facility] Work Phone: Whole blood hemoglobin A1c/t otal hemoglobin ratio (mass fraction)on 01-05-2022 HbA1c (Bld) [Mass fraction] 5.2 % 3.8-5.6 [facility] Work Phone: Comment on above: Normal < 5.7 % Predi abetic 5.7 - 6.4 % Diabetic >or= 6.5 % Please note range changes. Clinical Summary: HMSPatient IDon 07-09-2020 [facility] Work Phone: Vital Signs Date Time Vital Sign Value Performing Clinician Facility NEGATED: Highlighted [id number] 15:24-0500 BMI (Body Mass Index) 22.91 kg/m2 Hilda Guan LPN [facility] Work Phone: NEGATED: Highlighted [id number] 15:24-0500 Body weight 51.26 kg Hilda Guan LPN [facility] Work Phone: NEGATED: Highlighted [id number] 15:24-0500 Body weight 51 kg Hilda Guan LPN [facility] Work Phone: NEGATED: Highlighted [id number] 15:24-0500 Height 149.86 cm Hilda Guan LPN [facility] Work Phone: NEGATED: Highlighted [id number] 15:24-0500 Height 150 cm [facility] Roge [employer] [facility] Work Phone: Encounters Encounter Date Encounter Type Care Provider Facility Start: 07-14-2024 Encounter for genera l adult medical examination without abnormal findings Duglas Gutierrez [facility] Start: 06-20-2024 End: 06-20-2024 ambulatory Duglas Gutierrez Facility:[facility] Start: 12-15-2023 End: 12-15-2023 ambulatory Duglas Gutierrez Facility:[facility] Start: 03-19-2023 End: 03-19-2023 ambulatory [facility] Work Phone: Start: 03-19-2023 End: 03-19-2023 Patient encounter procedure [facility] Start: 09-17-2022 Patient encounter procedure [facility]-Outpatient Bone Densitometry Start: 09-08-2022 End: 09-08-2022 ambulatory [facility] Work Phone: Start: 09-08-2022 End: 09-08-2022 Patient encounter procedure [facility] Start: 01-05-2022 End: 01-05-2022 Patient encounter procedure [facility]-Pulmonary Services/Neurology Start: 07-09-2020 End: 07-10-2020 Patient encounter procedure Alyx Agudelo MD Work Phone: [facility] Work Phone: Procedures Date Procedure Procedure Detail Performing Clinician Start: 03-19-2023 Plain chest X-ray Start: 09-17-2022 Dual energy X-ray absorptiometry Start: 09-17-2022 Screening mammography Start: 07-09-2020 End: 07-10-2020 Blood pressure screening not performed - reason not given Alyx Agudelo MD Work Phone: Start: 07-09-2020 End: 07-10-2020 Documentation of current medications Alyx Agudelo MD Work Phone: Start: 07-09-2020 End: 07-10-2020 Pain assessment documented as negative - follow-up not required Alyx Agudelo MD Work Phone: Start: 07-09-2020 End: 07-10-2020 Tobacco non-user Alyx Agudelo MD Work Phone: NEGATED: Highlighted rowStart: 07-09-2020 End: 07-09-2020 Documentation of current medications Hilda Guan LPN Plan of Treatment Date Care Activity Detail Author Start: 07-09-2020 End: 07-09-2020 Radex hand minimum 3 views XR HAND 3+ VWS-LT [facility] Work Phone: Payers Date Payer Category Payer Self-pay [id number] 2016 Unknown [id number] 2010 Medicare [id number] Unknown [id number] Unknown [id number] Unknown [id number] Social History Date Type Detail Facility Start: 07-10-2020 End: 07-10-2020 Assertion Unknown if ever smoked [facility] Work Phone: Start: 1945 Sex Assigned At Female W [facility] Progress note 07-25-2021 Note Date & Type Note Facility 07-25-2021 Note HNO ID: [id number] Author: Rubens Rojas Population Health Navigator Service: ? Author Type: ? Type: Progress Notes Filed: 07/25/2021 1:26 PM Note Text: POPULATION HEALTH NAVIGATION OUTREACH Action/FYI I left a voice message and a my chart message re: pcp No care everywhere Contact made with patient or family member? NO Pt identified by name and : NO Outreach Outcome/Action Unable to reach patient: Left message [email or web address] message sent Reason for Outreach Attribution: Provider Off-boarding Payer: Payor: MEDICARE / Plan: MEDICARE A AND B / Product Type: Medicare / Care Gap Reviewed:: Reminder: Reminder note to check Health Maintenance for items below Health Maintenance items due: COVID-19 VACCINE(1) Never done ADVANCE DIRECTIVE DISCUSSION Never done SHINGRIX VACCINE(2 of 3) due on 11/09/2012 DTAP,TDAP,TD(3 - Td or Tdap) due on 12/26/2018 DEPRESSION SCREENING due on 09/29/2020 INFLUENZA(1) due on 04/30/2021 Advanced Directives Completed: Have you ever planned for future healthcare decisions with a power of admitted attorneys, living will, or advance directives? No. Please bring a copy to your next appointment or email to Referrals: N/A Message Sent to Practice: NO Navigation Signature: Rubens Rojas Population Health Navigator July 25, 2021 1:25 PM [facility] Clinical Note 07-25-2021 Note Date & Type Note Facility 07-25-2021 Note Patient Outreach (YUSUF TNANEESH) LISSNABIL Acevedo ([id number]) 1945 F Date Time Provider Department 07/25/21 GEORGE RUBENSBarbara DYER During your visit today, we recorded the following information about you: Rubens Beebelli Population Health Navigator 07/25/2021 1:26 PM Signed POPULATION HEALTH NAVIGATION OUTREACH Action/FYI I left a voice message and a my chart message re: pcp No care everywhere Contact made with patient or family member? NO Pt identified by name and : NO Outreach Outcome/Action Unable to reach patient: Left message [email or web address] message sent Reason for Outreach Attribution: Provider Off-boarding Payer: Payor: MEDICARE / Plan: MEDICARE A AND B / Product Type: Medicare / Care Gap Reviewed:: Reminder: Reminder note to check Health Maintenance for items below Health Maintenance items due: COVID-19 VACCINE(1) Never done ADVANCE DIRECTIVE DISCUSSION Never done SHINGRIX VACCINE(2 of 3) due on 11/09/2012 DTAP,TDAP,TD(3 - Td or Tdap) due on 12/26/2018 DEPRESSION SCREENING due on 09/29/2020 INFLUENZA(1) due on 04/30/2021 Advanced Directives Completed: Have you ever planned for future healthcare decisions with a power of admitted attorneys, living will, or advance directives? No. Please bring a copy to your next appointment or email to [email or web address] Referrals: N/A Message Sent to Practice: NO Navigation Signature: Rubensbarbara Rojas Population Health Navigator July 25, 2021 1:25 PM Allergies As of Date: 07/25/2021 Noted Allergy Reaction AMOXICILLIN 10/28/2006 2 - Rash FOSAMAX (ALENDRONATE SODIUM) 12/08/2012 14 - Other: See Comments Comments: leg pain Date Reviewed: 10/04/2019 [facility] MILES Narvaez - Fully Assessed Reason for Visit: Population Health Navigation Outreach [3910] Cmt: Offboarding Prescriptions as of 07/25/2021 - CALCIUM + D 600 MG-200 UNIT TAB Take one(1) tablet daily. Problem List As Of Date 07/25/2021 Noted Resolved DIFFUS CYSTIC MASTOPATHY [N60.19] PERS HX COLONIC POLYPS [Z86.010] Unspecified constipation [K59.00] 10/02/2014 Symptomatic states associated with artificial m* 10/02/2014 Contracture of palmar fascia [M72.0] 01/28/2006 10/02/2014 AFTERCARE NOS [Z51.89] 03/18/2006 03/29/2006 Routine gynecological examination [Z01.419] 04/06/2007 01/25/2014 Osteoporosis [M81.0] 05/27/2011 Herpes simplex infection [B00.9] 01/31/2014 10/02/2014 Special screening for malignant neoplasms, colo*11/22/2014 11/22/2014 Hyperlipidemia LDL goal <130 [E78.5] 04/13/2016 Dupuytren's contracture of both hands [M72.0] 08/26/2018 Encounter Status:Closed by [facility] on 07/25/21 [facility] Clinical Note 10-22-2020 Note Date & Type Note Facility 10-22-2020 Note Patient Outreach (CO VAMN) NABIL LEIJA ([id number]) 1945 F Date Time Provider Department 10/22/20 SLICK KAHN During your visit today, we recorded the following information about you: Allergies As of Date: 10/22/2020 Noted Allergy Reaction AMOXICILLIN 10/28/2006 2 - Rash FOSAMAX (ALENDRONATE SODIUM) 12/08/2012 14 - Other: See Comments Comments: leg pain Date Reviewed: 10/04/2019 Reviewed by: Carmen ([facility]) MILES Narvaez - Fully Assessed Order(s):SARS-COVID VACCINE 1ST DOSE APPT [05203CYS] Order #: [id number] FUTURE Prescriptions as of 10/22/2020 Sig: * CALCIUM + D 600 MG (1,500 MG)* Take one(1) tablet daily. Problem List As Of Date 10/22/2020 Noted Resolved DIFFUS CYSTIC MASTOPATHY [N60.19] PERS HX COLONIC POLYPS [Z86.010] More... Unspecified constipation [K59.00] 10/02/2014 More... More... Symptomatic states associated with artificial m* 10/02/2014 Contracture of palmar fascia [M72.0] 01/28/2006 10/02/2014 AFTERCARE NOS [Z51.89] 03/18/2006 03/29/2006 Routine gynecological examination [Z01.419] 04/06/2007 01/25/2014 Osteoporosis [M81.0] 05/27/2011 Herpes simplex infection [B00.9] 01/31/2014 10/02/2014 Special screening for malignant neoplasms, colo*11/22/2014 11/22/2014 Hyperlipidemia LDL goal <130 [E78.5] 04/13/2016 Dupuytren's contracture of both hands [M72.0] 08/26/2018 Encounter Status:Closed by Trusera, PRODUSER on 10/25/20 [facility] Evaluation note Note Date & Type Note Facility Evaluation note No assessment information availa [facility] Work Phone: Chief Complaint Chief Complaint Description Start Date left hand deformity Preliminary chief co mplaint data, not yet signed by the author as of Instructions Instruction Description Start Date Completed Advance Directives There may be information available, but it has not been provided by the sender. No Advanced Directives Records FoundNo Advanced Directives Records Found Assessments There may be information available, but it has not been provided by the sender. Review of System There may be information available, but it has not been provided by the sender. Family History There may be information available, but it has not been provided by the sender.No Family History Records FoundNo Family History Records Found History of Present Illness There may be information available, but it has not been provided by the sender. Summary Purpose Chief Complaint and Reason for Visit Chief Complaint PREOP Chief Complaint SCREENING.OSTEO Chief Complaint ADD CXR Additional Source Comments Reason for Visit (unrecogniz ed section and content) Reason For Visit Description New/Est - 1st visit with physician 07/09 Preliminary reason f or visit data, not yet signed by the author as of left hand deformity INFORMATION SOURCE (unrecogn ized section and content) DATE CREATED AUTHOR 09/26/2021 [facility] DATE CREATED AUTHOR AUTHOR'S ORGANIZ ATION 07/17/2024 [facility] Goals (unrecognized section and content) Goals may be documented in a n alternate sectionGoals may be documented in an alternate sectionGoals may be documented in an alternate section Care Teams (unrecognized sec tion and content) Team Status: Active Member Role Status Dates Dr. Juaquin Arrieta III, MD Family Provider Active Dr. Duglas Gutierrez MD Primary Care Provider Active Team Status: Inactive Member Role Status Dates Dr. Duglas Gutierrez MD Primary Care Provider, Attending Provider Active Team Status: Active Member Role Status Dates Dr. Duglas Gutierrez MD Primary Care Provider, Attending Provider Active Team Status: Inactive Member Role Status Dates Dr. Duglas Gutierrez MD Primary Care Provi yessica, Attending Provider, Referring Provider Active FOR RECORDS PERTAINING TO PATIENTS WHO ARE OR HAVE BEEN ENROLLED IN A CHEMICAL DEPENDENCY/SUBSTANCEABUSE PROGRAM, SOME INFORMATION MAY BE OMITTED. This clinical summary was aggregated from multiple sources. Caution should be exercised in using it in the provision of clinical care. This summary normalizes information from multiple sources, and as a consequence, information in this document may materially change the coding, format and clinical context of patient data. In addition, data may be omitted in some cases. CLINICAL DECISIONS SHOULD BE BASED ON THE PRIMARY CLINICAL RECORDS. [employer] provides no warranty or guarantee of the accuracy or completeness of information in this document.
[2025-06-21 13:37] LABS: AST(SGOT) 17 U/L (<=31); Alanine Aminotransfer ALT/SGPT 12 U/L (<=34); Albumin, Serum 4.1 g/dL (3.4-4.8); Alkaline Phosphatase 75 U/L (35-104); Anion Gap 9 (5-15); BUN 19 mg/dL (4-19); BUN/Creat Ratio 23.7 RATIO (10-20); Calcium,Total 9.4 mg/dL (7.6-11.0); Carbon Dioxide 25.4 mmol/L (21.0-32.0); Chloride 105 mmol/L (98-108); Globulin 2.6 g/dL (2.2-4.2); Glucose 84 mg/dL (70-99); Potassium 4.3 mmol/L (3.3-5.1)
[2025-06-21 14:04] LABS: Cholesterol 208 mg/dL (<=200); Low Density Lipoprotein Calc. 134 mg/dL; Triglycerides 95 mg/dL; Very Low Density Lipoprotein 19 mg/dL (5-40); cholesterol:hdl ratio screen 3.67
[2025-06-25 12:09] LABS: Vitamin D 1,25-Dihydroxy 31.3 pg/mL (24.8-81.5)
== END | disposition home or self-care (01) ==
LOC: MFPLAB 09:41
PROVIDERS: PCP Family Medicine; Visit Provider Family Medicine
DX: E78.5 Hyperlipidemia, unspecified (principal); E55.9 Vitamin D deficiency, unspecified
CPT/HCPCS: 36415; 80053; 80061; 82652

== ENCOUNTER → 2025-07-19 | Outpatient (CLI) | payer MEDICARE, BC, SELFPAY ==
--- NOTE | 2025-07-19 15:29 | BD_ITS ---
PROCEDURE: DEXA BONE DENSITY STUDY 07/19/2025 REASON FOR EXAM: F, age 80 y/o . Postmenopausal. TECHNIQUE: Procedure Code: BDDBD Modality: DX Procedure: DEXA BONE DENSITY STUDY COMPARISON: September 17, 2022. FINDINGS: BMD and T-SCORES Lumbar spine: 0.964 g/cm2, T-score -0.5 Levels: L1 through L4 Change from prior: 1.9%. Right femoral neck: 0.473 g/cm2, T-score -3.4 Femoral neck comparison data not recommended for monitoring change. Right total hip: 0.661 g/cm2, T-score -2.3 Change from prior: Improvement of 2.5%. The World Health Organization has defined the following categories based on bone density: Normal bone density: T-score equal to or greater than -1.0 Osteopenia: T-score between -1.0 and -2.5 Osteoporosis: T-score equal to or less than -2.5 FRAX (or Comparable) Fracture Risk Assessment: 10 Year Probability of Fracture: Major Osteoporotic Fracture: 26% Hip Fracture: 12th% (Note: FRAX is not to be reported in setting of normal range bone density, osteoporosis on DEXA, known history of osteoporosis, prior osteoporotic hip or vertebral fracture, or for any patient undergoing pharmacological treatment for bone loss.) The National Osteoporosis Foundation (NOF) recommends pharmacological treatment for patients with a FRAX 10-year risk of 3% or higher for a hip fracture, or 20% or higher for a major osteoporotic fracture, to prevent osteoporosis and reduce fracture risk. The patient does meet the pharmacological treatment recommendations for prevention of osteoporosis. BD/Dexa Bone Density Study IMPRESSION: OSTEOPOROSIS. Recommend follow-up as clinically warranted. Reading Location: [id number]
--- NOTE | 2025-07-19 15:29 | BI_ITS ---
EXAM: SCRN MAMM (CAD)W/ONEL BILAT DATE: 07/19/2025 CLINICAL HISTORY: F, Age 80 y/o , SCREENING No family history. TECHNIQUE: Procedure Code: BISMWCADBTOM Modality: MG Procedure: SCRN MAMM (CAD)W/ONEL BILAT COMPARISON: Prior exam(s) dated September 17, 2022.. FINDINGS: TISSUE DENSITY: There are scattered areas of fibroglandular density. Bilateral Breast Mammographic Findings: No significant masses, calcifications or other abnormalities are identified. Stable bilateral fat containing axillary lymph nodes. No suspicious masses, areas of developing architectural distortion, or suspicious calcifications. There has been no significant interval change. BI/SCRN MAMM (CAD)W/ONEL BILAT IMPRESSION: Stable bilateral screening mammogram. OVERALL FINAL ASSESSMENT BI-RADS 2: BENIGN RECOMMENDATION: Routine annual follow-up in 1 Year Additional Recommendation none A letter with findings and recommendations will be mailed to the patient. Reading Location: [facility]
== END | disposition home or self-care (01) ==
LOC: OPBD 15:28
PROVIDERS: PCP Family Medicine; Referring Provider Family Medicine; Visit Provider Family Medicine
DX: Z12.31 Encounter for screening mammogram for malignant neoplasm of breast (principal); Z78.0 Asymptomatic menopausal state
CPT/HCPCS: 77063; 77067; 77080